=== PATIENT | male | born 1980 | race Caucasian/White ===

== ENCOUNTER 2017-10-02 14:45 | Inpatient (IN) | payer OTHER ==
[~2017-10-02] VITALS: Ht 182.9 cm; Wt 61.7 kg
[2017-10-02 14:52] VITALS: Ht 182.9 cm; Wt 61.7 kg
[2017-10-02] MEDS ORDERED: OXYCODONE HYDRO10 M1 PO (16:18)
[2017-10-02] MEDS ORDERED: METHADONE HCL5 MG PO (16:19)
[2017-10-02 16:27] LABS: PLATELET COUNT 344 x10^3mcL (130-400)
[2017-10-02 16:48] LABS: RED CELL DISTRIBUTION WIDTH 22.5 % (11.5-14.5)
[2017-10-02 16:50] LABS: CALCIUM 8.1 mg/dL (8.5-10.1); CARBON DIOXIDE 25.1 mmol/L (21-32); CHLORIDE SERUM 90 mmol/L (98-107); CREATININE SERUM 0.6 mg/dL (0.7-1.3); GFR1 > 60 mL/min; GLUCOSE SERUM 122 mg/dL (74-106); POTASSIUM SERUM 3.3 mmol/L (3.5-5.1); SODIUM SERUM 134 mmol/L (136-145)
[2017-10-02 16:54] LABS: ALBUMIN 2.3 g/dL (3.4-5.0); ALKALINE PHOSPHATASE 105 U/L (46-116); ALT/SGPT 19 U/L (16-63); AST/SGOT 27 U/L (15-37); BILIRUBIN TOTAL 0.8 mg/dL (0.20-1.00); TOTAL PROTEIN, SERUM 6.6 g/dL (6.4-8.2)
[2017-10-02 17:18] LABS: BAND NEUTROPHIL 10 % (0-10); BASOPHIL 0 % (0-2); MONOCYTE 4 % (0-7); SEGMENTED NEUTROPHILS 83 % (37-75)
[2017-10-02 17:20] VITALS: BP 71/39
[2017-10-02 17:20] LABS: PLATELET MORPHOLOGY PLATELETS NORMAL; rbc morphology (normal/abnorm) ABNORMAL (NORMAL); target cell (codocyte) 2+
[2017-10-02 19:36] LABS: T3 TOTAL 0.55 ng/mL
[2017-10-02 19:41] LABS: FREE T4 1.43 ng/dL (0.76-1.46); FREE THYROXINE INDEX 2.8 ug/dL (1.4-4.5); T4(THYROXINE) 7.3 ug/dL (4.7-13.3)
[2017-10-02 21:45] VITALS: BP 63/36
== END 2017-10-03 03:31 | disposition expired | DRG 871 ==
LOC: ED 14:45 → DU 16:04
PROVIDERS: Emergency Medicine; Family Medicine
PROC: 5A09357 Assistance with Respiratory Ventilation, Less than 24 Consecutive Hours, Continuous Positive Airway Pressure (ICD-10-PCS; principal; 2017-10-02)
DX: A41.9 Sepsis, unspecified organism (principal); E43 Unspecified severe protein-calorie malnutrition; J96.00 Acute respiratory failure, unspecified whether with hypoxia or hypercapnia; R65.21 Severe sepsis with septic shock; C18.9 Malignant neoplasm of colon, unspecified; Z68.1 Body mass index [BMI] 19.9 or less, adult; C79.51 Secondary malignant neoplasm of bone; E87.1 Hypo-osmolality and hyponatremia; D68.59 Other primary thrombophilia; I46.9 Cardiac arrest, cause unspecified; E87.6 Hypokalemia; D64.9 Anemia, unspecified; I95.9 Hypotension, unspecified; E87.8 Other disorders of electrolyte and fluid balance, not elsewhere classified; Z51.5 Encounter for palliative care; Z66 Do not resuscitate
CPT/HCPCS: 84439; J0696; J2270; J3010; J3490; J7030; J7040; J7613; J7644